=== PATIENT | male | born 1945 | race Caucasian/White ===

== ENCOUNTER → 2020-07-01 10:14 | Outpatient (CLI) | payer MEDICARE, OTHER, SELFPAY ==
--- NOTE | ~2020-07-01 | MR_ITS ---
EXAMINATION: MR lumbar spine wo con DATE: 07/01/2020 10:50 INDICATION: Right-sided sciatica. TECHNIQUE: Magnetic resonance imaging (MRI) of the lumbar spine was performed without intravenous con trast. Sequences included sagittal T2-weighted FSE, sagittal T2-weighted FS FSE, sagittal T1-weighted FSE, and axial T2-weighted FSE. COMPARISON: None FINDINGS: There is 8 degrees levocurvature of lumbar spine. There are hemangiomas in L1 and L3 verteb ral bodies. Vertebral body heights are normal. The distal spinal cord signal intensity is normal. The conus medullaris is at L1. The following disc levels are specifically discussed: L1-L2: The disc is mildly bulging. There is mild bilateral facet joint osteoarthritis. There is mild bilateral neural foraminal stenosis. There is no central canal stenosis. L2-L3: The disc is bulging. There is mild bilateral facet joint osteoarthritis. There is mild bilater al neural foraminal stenosis. There is mild central canal stenosis. L3-L4: The disc is bulging. There is moderate right and severe left facet joint osteoarthritis. There is mild bilateral neural foraminal stenosis. There is mild central canal stenosis. L4-L5: The disc is bulging and has an annular fissure. There is severe right and moderate left facet joint osteoarthritis. There is moderate bilateral neural foraminal stenosis. There is mild central ca nal stenosis. L5-S1: The disc is bulging and has an annular fissure. There is moderate bilateral facet joint osteoa rthritis. There is mild bilateral neural foraminal stenosis. There is mild central canal stenosis. IMPRESSION: 1. Moderate lumbar spondylosis. Reviewed, dictated and finalized at location A.
== END ==
PROVIDERS: Visit Provider Internal Medicine
DX: M54.31 Sciatica, right side (principal); M47.896 Other spondylosis, lumbar region
CPT/HCPCS: 72148

== ENCOUNTER 2020-09-02 10:00 | Outpatient (RCR) | payer MEDICARE, OTHER, SELFPAY ==
--- NOTE | 2020-07-13 16:42 | PTOPEVAL ---
INITIAL PHYSICAL THERAPY EVALUATION and PLAN OF CARE Thank you for referring Tomer Rock to [facility] [place].? Dale is scheduled to be seen for physical therapy? 1-2x/week for 4 weeks. Please review, sign, date and return this plan of care JOLIE. I agree with and certify that the following plan of care is medically necessary. Referring Physician Date Admitting Provider: Attending Provider: Julio César Sandoval, Referring Provider: *PT Outpatient Evaluation Start: 07/13/20 13:41 Freq: Status: Active Protocol: Document 07/13/20 13:40 CLARISSA (Rec: 07/13/20 14:59 CLARISSA [id number]) Therapy Assessment Status Assessment Status Assessment Status Evaluation Outpatient Past Medical History Past Medical History Source of Past Medical History Patient Neurological History Hx Neurological Disorders No Significant History Cardiovascular History Hx Hypercholesterolemia Yes Hx Hypertension Yes Respiratory History Hx Respiratory Disorders No Significant History Gastrointestinal History Hx Gastrointestinal Disorders No Significant History Genitourinary History Hx Genitourinary Disorders No Significant History Musculoskeletal History Hx Arthritis Yes: general low level Hx Back Pain Yes Endocrine History Hx Diabetes Yes Evaluation Information Problem Diagnosis low back pain, R leg sciatica Onset ~ 3 weeks ago Subjective Information Down at cabin - perform normal Query Text:As Reported By Patient/ activities - everything is on Family an angle - began to notice the discomfort - kept getting worse. Sitting and walking help. No problems with sleeping - first thing in morning some increase in discomfort - worse in the evenings. Now will feel it during the day - especially after increased activity - movement. Able to use rowing machine at home - didn't bother him. Stairs were begining to be difficult. Diagnostic Tests MRI For This Problem Yes Prior Level of Function Medications Home Meds (Include: OTC, RX, Vitamins, metformin, amlodipine, Herbals, Dose, Route,and Frequency) benazepril, niaspan, Query Text:Home Med Entries Will No glimepiride, rosyvastain, Longer Recall From Past Visits. Home bydureon, aspirin 81mg, taking Meds Must Be Re-entered With Each Visit. pain medication, 2 IM injections - each lasted couple of da
--- NOTE | 2020-08-05 12:17 | PTOPEVAL ---
PHYSICAL THERAPY RE-EVALUATION and POSSIBLE DISCHARGE SUMMARY Thank you for referring Tomer Rock to [facility].? Dale was seen in PT x 8 visits. Gains have been made in regards to R sided lower back and leg pain, increased core strength, and upgrading of functional abilities but he still continues with difficulty with prolonged sitting. He is to see Dr. Sandoval today at 1:00 p.m. - will await the outcome of the visit before discharging him from PT. If no further PT is desired - consider this note a discharge summary. Referring Physician Date Admitting Provider: Attending Provider: Julio César Sandoval, Referring Provider: *PT Outpatient Evaluation Start: 07/13/20 13:41 Freq: Status: Active Protocol: Document 08/05/20 11:04 CLARISSA (Rec: 08/05/20 12:17 CLARISSA [id number]) Therapy Assessment Status Assessment Status Assessment Status Re-evaluation Evaluation Information Problem Subjective Information Dael reports feeling 40-50% Query Text:As Reported By Patient/ improved. If he perform trunk Family flexion - R sided lower back discomfort occurs - goes away with trunk extension and walking around as well as when he does his exercises. Stairs - usually can perform reciprocal stepping now. When his R sided back pain is present will also have leg pain. Sitting can still be uncomfortable. Still taking pain medication. Pain Assessment Timing of Pain Assessment Timing of Pain Assessment Assessment Pain Scale Pain Scale Used Numeric (1 - 10) Self Report Pain Assessment Lower Back Reported Pain Level 1 Radicular Pain Location to R knee Other Pain Description grabbing, aching Lowest Pain Intensity 0 Greatest Pain Intensity 6 Pain Score Pain Score 1: Self Report Interventions Used Interventions Used By Clinicians Exercise Cervical and Lumbar ROM Lumbar ROM Lumbar Flexion (0-90) 50 Query Text:Active in Degrees Lumbar Extension (0-40) 15 Query Text:Active in Degrees Lumbar Lateral Flexion Right (0-40) 10 Query Text:Active in Degrees Lumbar Lateral Flexion Left (0-40) 15 Query Text:Active in Degrees Lumbar Comments some discomfort on R side with trunk extension - not terrible Palpation Assessment Palpation Palpation P-A glides to sacrum - non tender, increased L5 P-A mobil
--- NOTE | 2020-08-11 08:10 | PCPTNOTE ---
Addendum entered by EDINSON FLORES, PT, DPT 08/11/20 08:12: MD Signature to certify agreement in continuation of PT Original Note: Dale is due for the renewal of PT therapy orders this date. Plan of care, goals, and progress have been reviewed. Patient remains appropriate for continued PT therapy services. Renew Orders obtained. Continue PT therapy per plan of care. Will be seen 1-2x/wk x 4 wks.
--- NOTE | 2020-09-02 11:28 | PTOPEVAL ---
PHYSICAL THERAPY DISCHARGE SUMMARY Thank you for referring Tomer Rock to [facility].? Dale was seen for a total of 14 visits. Goals were met in regards to exercise and trunk ROM, but still increased pain levels and limited flexion based activities remain. He is at end point with PT at this time. Thank you for Dale's referral to PT. I agree with Dale's discharge from PT. Referring Physician Date Admitting Provider: Attending Provider: Julio César Sandoval, Referring Provider: *PT Outpatient Evaluation Start: 07/13/20 13:41 Freq: Status: Active Protocol: Document 09/02/20 10:04 CLARISSA (Rec: 09/02/20 11:25 CLARISSA [email or web address]) Therapy Assessment Status Assessment Status Assessment Status Discharge Evaluation Information Problem Subjective Information Dale states that sitting is Query Text:As Reported By Patient/ still difficult for him. Pain Family with stair climbing can fluctuate - sometimes after stretching and exercises - feels good, but other times increased R sided pain as well as radicular R leg pain to calf. Will also get discomfort with bending over while doing dishes. Pain Assessment Timing of Pain Assessment Timing of Pain Assessment Assessment Pain Scale Pain Scale Used Numeric (1 - 10) Self Report Pain Assessment Lower Back Reported Pain Level 3 Lowest Pain Intensity 1 Greatest Pain Intensity 7 Pain Score Pain Score 3: Self Report Interventions Used Interventions Used By Clinicians Exercise,Manual Therapy Techniques,Ultrasound Cervical and Lumbar ROM Lumbar ROM Lumbar Flexion (0-90) 50 Query Text:Active in Degrees Lumbar Extension (0-40) 10 Query Text:Active in Degrees Lumbar Lateral Flexion Right (0-40) 10 Query Text:Active in Degrees Lumbar Lateral Flexion Left (0-40) 15 Query Text:Active in Degrees Rehab Teaching Rehab Teaching Teaching Topic Rehab Teaching Topic Components Anatomy/Physiology,Body Mechanics,Exercise Recipient Patient Barriers to Learning None Readiness to Learn Excellent Response Returns Demonstration, Verbalizes Understanding Method Discussion,Handout,One-On-One Instruction,Written Instruction Additional Rehab Teaching Comments spinal dysfunction/mechanics
== END 2020-09-10 11:00 | disposition home or self-care (01) ==
LOC: ANHHIPT 10:00
PROVIDERS: PCP Internal Medicine; Visit Provider Internal Medicine
DX: M54.41 Lumbago with sciatica, right side (principal)
CPT/HCPCS: 97035; 97110; 97140; 97161

== ENCOUNTER → 2021-05-18 13:53 | Outpatient (CLI) | payer MEDICARE, OTHER, SELFPAY ==
--- NOTE | ~2021-05-18 | MR_ITS ---
EXAMINATION: MR lumbar spine wo con EXAM DATE: 05/18/2021 14:29 INDICATION: Low back pain, left leg numbness and weakness. TECHNIQUE: Multi-sequential, multiplanar MR images of the lumbar spine were obtained without contrast . Sagittal T1, T2, T2 fat saturation images. Axial T2 weighted images. Comparison is made to prior examination from 07/01/2020. FINDINGS: Mild diffuse lumbar disc disease. There are scattered focal signal abnormalities consistent with hemangiomata, otherwise without focal suspicious marrow signal abnormalities. There is 2 mm ant erolisthesis L4 on L5. The conus medullaris terminates at the L1/2 level and has normal signal intens ity and morphology. Mild lumbar levoscoliosis. Paraspinal soft tissue is unremarkable. Level by level evaluation: T12-L1: Disc does not extend beyond the endplate margin. Facet arthropathy: Mild. Neural foraminal stenosis: No stenosis. Central canal stenosis: No stenosis. L1-L2: There is a mild diffuse disc bulge. Facet arthropathy: Mild to moderate. Neural foraminal stenosis: Mild left. Central canal stenosis: Mild. L2-L3: There is a mild diffuse disc bulge. Facet arthropathy: Mild to moderate. Neural foraminal stenosis: Mild to moderate right, mild left. Central canal stenosis: Mild to moderate. L3-L4: There is a mild to moderate diffuse disc bulge. Facet arthropathy: Moderate bilateral. Neural foraminal stenosis: Mild to moderate bilateral. Central canal stenosis: Mild to moderate. L4-L5: There is a moderate diffuse disc bulge. Facet arthropathy: Severe right, moderate to severe left. Neural foraminal stenosis: Moderate bilateral. Central canal stenosis: Moderate. L5-S1: There is a mild to moderate diffuse disc bulge, superimposed left central protrusion. Facet arthropathy: Moderate. Neural foraminal stenosis: Moderate left, mild to moderate right. Central canal stenosis: Moderate left lateral recess stenosis, some mass effect suspected on the pamela ersing left S1 nerve root. Difficult appreciate significant interval change compared to previous study. IMPRESSION: 1. Overall moderate lumbar spondylosis. Reviewed, dictated and finalized at location B.
== END ==
PROVIDERS: PCP Internal Medicine; Visit Provider Nurse Practitioner Adult Health
DX: M47.26 Other spondylosis with radiculopathy, lumbar region (principal)
CPT/HCPCS: 72148

== ENCOUNTER 2021-06-21 12:30 | Outpatient (RCR) | payer MEDICARE, OTHER, SELFPAY ==
--- NOTE | 2021-05-26 17:00 | PTOPEVAL ---
INITIAL PHYSICAL THERAPY EVALUATION and PLAN OF CARE Thank you for referring Tomer Rock to [facility].? Dale is scheduled to be seen for physical therapy? 2x/week for 4 weeks. Please review, sign, date and return this plan of care JOLIE. I agree with and certify that the following plan of care is medically necessary. Referring Physician Date Admitting Provider: Attending Provider: Katerine Dykes, INFECTIOUS DISEASE TECHNICIAN-BC Referring Provider: *PT Outpatient Evaluation Start: 05/26/21 14:13 Freq: Status: Active Protocol: Document 05/26/21 14:13 CLARISSA (Rec: 05/26/21 15:32 CLARISSA [email or web address]) Therapy Assessment Status Assessment Status Assessment Status Evaluation Outpatient Past Medical History Past Medical History Source of Past Medical History Recalled from Previous Visit, Confirmed with Patient/Family Neurological History Hx Neurological Disorders No Significant History Cardiovascular History Hx Hypercholesterolemia Yes Hx Hypertension Yes Respiratory History Hx Respiratory Disorders No Significant History Gastrointestinal History Hx Gastrointestinal Disorders No Significant History Genitourinary History Hx Genitourinary Disorders No Significant History Musculoskeletal History Hx Arthritis Yes: general low level Hx Back Pain Yes Endocrine History Hx Diabetes Yes: type II Evaluation Information Problem Diagnosis L leg numbness, weakness, pain Onset 4-6 wks ago Subjective Information Cutting grass, weed eating, Query Text:As Reported By Patient/ blowing grass - after took Family shower - when walking down hallway increased pain L buttock/lower leg. MRI - scheduled for injection . Also having distal shoulder blade pain from lifting weights - that started prior to back/hip/L LE pain. That pain is worse in the morning - better as he moves around. Back/L LE - numb most of the day - all the way to foot, also having weakness. Did start exercises that he had done for R leg when seen in past - did help the pain but not the numbness. Diagnostic Tests MRI For This Problem Yes Prior Level of Function Activity Level (Last 3 Months) Occupation retired Hand Dominance Right Medications Khloe
--- NOTE | 2021-06-21 13:30 | PTOPEVAL ---
PHYSICAL THERAPY DISCHARGE SUMMARY Thank you for referring Tomer Rock to [facility] [place].? Dale has been seen in PT x 8 visits. He has reached goals set. He is to continue with be mindful of his body mechanics - following spine extension principle, and continue with his HEP. He is ready for d/c from PT to HEP. I agree with Dale's discharge from PT. Referring Physician Date Admitting Provider: Attending Provider: Katerine Dykes, MAC OPERATOR-BC Referring Provider: Therapy Assessment Status Assessment Status Assessment Status Discharge Evaluation Information Problem Diagnosis L leg numbness, weakness, pain Subjective Information Dale reports that MD Query Text:As Reported By Patient/ appointment went well. Still Family not having any pain in L LE. He will have numbness in the morning to knee or L calf level, but that goes away as the day goes on. L LE strength returning - at 60% of R LE. Back to usual activity level now. Pain Assessment Timing of Pain Assessment Timing of Pain Assessment Assessment Pain Scale Pain Scale Used Numeric (1 - 10) Self Report Pain Assessment Left Buttock(s) Reported Pain Level 0 Lowest Pain Intensity 0 Greatest Pain Intensity 0 Cervical and Lumbar ROM Lumbar ROM Lumbar Flexion (0-90) 60 Query Text:Active in Degrees Lumbar Extension (0-40) 20 Query Text:Active in Degrees Lumbar Lateral Flexion Right (0-40) 20 Query Text:Active in Degrees Lumbar Lateral Flexion Left (0-40) 20 Query Text:Active in Degrees Palpation Assessment Palpation Palpation P-A mob to sacrum, lumbar spine - no tenderness present, generalized stiffness present Mild increase in tissue tension with lumbar paraspinal muscles Myotomes Myotomes Bilateral Lower Extremity General Myotomes Comments L - hip flexion 4+/5, Quad 5/5 , dorsiflexion 5/5, peroneals 5/5, big toe 4/5, hamstrings 4 +/5 PT Clinical Summary Clinical Summary Protocol: PTEVCODE PT Clinical Summary Modified Oswestry LBP Questionnaire - 0% Dale has progressed well in PT. His L LE pain has been eliminated. L LE numbness is still sometimes present in morning, but goes away as day
== END 2021-07-22 08:48 | disposition home or self-care (01) ==
LOC: ANHHIPT 12:30
PROVIDERS: PCP Internal Medicine; Visit Provider Nurse Practitioner Adult Health
DX: M54.16 Radiculopathy, lumbar region (principal); M54.17 Radiculopathy, lumbosacral region
CPT/HCPCS: 97110; 97140; 97162